=== PATIENT | male | born 1955 | race Two or more races ===

== ENCOUNTER 2020-01-27 10:19 | Outpatient (CLI) | payer OTHER ==
[~2020-01-27 10:19] MED LIST: AMOX1TAB12 PO; IBUPROFEN800 MG PO
== END 2020-01-27 10:27 | disposition home or self-care (01) ==
LOC: SONOGRAMA 10:19
PROVIDERS: ATTEND Physical Medicine & Rehabilitation Pediatric Rehabilitation Medicine
DX: M70.51 Other bursitis of knee, right knee (principal); M60.88 Other myositis, other site

== ENCOUNTER → 2020-02-05 | Outpatient (CLI) | payer OTHER | END | disposition home or self-care (01) | LOC: MRI 07:17 | PROVIDERS: ATTEND Physical Medicine & Rehabilitation Pediatric Rehabilitation Medicine | DX: M70.51 Other bursitis of knee, right knee (principal); M60.88 Other myositis, other site | CPT/HCPCS: 73721 ==

== ENCOUNTER 2023-01-18 07:48 | Outpatient (CLI) | payer OTHER | END 2023-01-18 13:15 | disposition home or self-care (01) | LOC: MRI 07:48 | PROVIDERS: ATTEND Physical Medicine & Rehabilitation Pediatric Rehabilitation Medicine | DX: R31.29 Other microscopic hematuria (principal); S83.281A Other tear of lateral meniscus, current injury, right knee, initial encounter; M75.111 Incomplete rotator cuff tear or rupture of right shoulder, not specified as traumatic | CPT/HCPCS: 73718 ==

== ENCOUNTER 2025-03-02 11:05 | Outpatient (CLI) | payer OTHER | END 2025-03-02 11:10 | disposition home or self-care (01) | LOC: MRI 11:05 | PROVIDERS: ATTEND Physical Medicine & Rehabilitation | DX: M17.11 Unilateral primary osteoarthritis, right knee (principal); M25.561 Pain in right knee; M75.121 Complete rotator cuff tear or rupture of right shoulder, not specified as traumatic | CPT/HCPCS: 73221 ==